=== PATIENT | male | born 1960 | race African-American/Black ===

== ENCOUNTER 2021-05-26 07:11 | Emergency (ER) | payer OTHER ==
[2021-05-26 07:57] LABS: BASOPHIL 0.5 % (0-2); EOSINOPHIL 1.5 % (0-5); HCT 38.2 % (42.0-52.0); HGB 11.8 g/dl (13.2-18.0); LYMPHOCYTE 15.1 % (15-48); MCH 26.7 pg (25.0-31.0); MCHC 30.9 g/dL (32.0-36.0); MCV 86.4 fL (78.0-100.0); MONOCYTE 8.8 % (0-12); MPV 11.8 fL (6.0-9.5); NEUTROPHIL 73.8 % (41-80); NRBC 0; PLT 323 K/uL (150-400); RBC 4.42 M/uL (4.70-6.00); RDW 13.9 % (11.5-14.0); WBC 9.3 K/uL (4.0-10.5)
[2021-05-26 08:16] LABS: ALBUMIN 3.1 g/dL (3.4-5.0); BILIRUBIN - TOTAL 0.3 mg/dL (0.2-1.0); BUN/CREAT RATIO (CALC) 15.3 RATIO; CREATININE 0.85 mg/dL (0.67-1.17); TOTAL PROTEIN 7.1 g/dL (6.4-8.2)
[2021-05-26 09:30] LABS: BILIRUBIN NEGATIVE (NEGATIVE); BLOOD NEGATIVE Ery/uL (NEGATIVE); CLARITY CLEAR (CLEAR); COLOR YELLOW (YELLOW); GLUCOSE (U) NORMAL (NORMAL); LEUKOCYTES NEGATIVE Leu/uL (NEGATIVE); NITRITE NEGATIVE (NEGATIVE); PROTEIN NEGATIVE (NEGATIVE); SPECIFIC GRAVITY 1.015 (1.001-1.030); UROBILINOGEN 0.2 mg/dL (0.2-1.0)
[2021-05-26 09:32] LABS: AMPHETAMINES NEGATIVE (NEGATIVE); BARBITURATES NEGATIVE (NEGATIVE); ECSTASY (MDMA) NEGATIVE (NEGATIVE); MARIJUANA (THC) NEGATIVE (NEGATIVE); METHADONE NEGATIVE (NEGATIVE); OPIATES NEGATIVE (NEGATIVE); OXYCODONE NEGATIVE (NEGATIVE)
== END 2021-05-26 10:10 | disposition home or self-care (01) ==
LOC: EDBD 07:11 → FER 07:11
PROVIDERS: Emergency Medicine
DX: R55 Syncope and collapse (principal); F17.210 Nicotine dependence, cigarettes, uncomplicated; Z20.822 Contact with and (suspected) exposure to COVID-19; Z85.028 Personal history of other malignant neoplasm of stomach
CPT/HCPCS: 36415; 70450; 71045; 80053; 80305; 81003; 84443; 84484; 85025; 93005; J7030; U0002

== ENCOUNTER 2021-06-21 07:48 | Emergency (ER) | payer MEDICARE, OTHER ==
[2021-06-21] MEDS ORDERED: VENTOLIN HFA18 GM INH (10:57)
[2021-06-21] MEDS ORDERED: MUCINEX 600MG600 MG PO (10:57)
[2021-06-21] MEDS ORDERED: MEDROL 4MG DOSEP4 MG PO (10:57)
[2021-06-21] MEDS ORDERED: TESSALON PERLE100 M1 PO (10:57)
== END 2021-06-21 11:09 | disposition left against medical advice (07) ==
LOC: EDBD 07:48 → FER 07:48
DX: J20.9 Acute bronchitis, unspecified (principal); F17.210 Nicotine dependence, cigarettes, uncomplicated; Z85.028 Personal history of other malignant neoplasm of stomach
CPT/HCPCS: 71046